=== PATIENT | male | born 1945 | race Caucasian/White ===

== ENCOUNTER 2022-04-06 11:39 | Emergency (ER) | payer MEDICARE, OTHER ==
[~2022-04-06 11:39] MED LIST: Iopamidol 370 76% 100 ML VIAL ONE; Iopamidol 370 76% 125 ML VIAL FS ONE; Sodium Chloride 0.9% 100 ML BAG ONE
[2022-04-06] MEDS ORDERED: Sodium Chloride 0.9% 1,000 ML ONE (14:11)
[2022-04-06] MEDS ORDERED: Sodium Chloride 0.9% 100 ML ONE (14:11)
[2022-04-06] MEDS ORDERED: cefTRIAXone\\ROCEPHIN 2 GM VIAL ONE (14:11)
[2022-04-06 14:24] LABS: Prothrombin Time 12.7 sec (12.0-14.7)
[2022-04-06 14:25] LABS: PTT 26.7 sec (22.9-36.1)
[2022-04-06 14:27] LABS: D-Dimer Test 1.98 *mcg/mL (0.27-0.43)
[2022-04-06 14:36] LABS: CK (CPK) 35 U/L (30-200); CRP (Inflammatory) 20.25 mg/dL (= or < 0.5); Magnesium 1.9 mg/dL (1.6-2.6)
[2022-04-06 14:39] LABS: ALT (SGPT) 15 U/L (8-55); AST (SGOT) 35 U/L (5-34); Albumin 3.3 g/dL (3.4-4.8); Alkaline Phosphatase 60 U/L (40-110); Anion Gap 20 mmol/L (10-20); BUN (Urea Nitrogen) 12 mg/dL (8.4-25.7); Bilirubin, Total 0.4 mg/dL (0.2-1.2); Calc. Creatinine Clearance 0 mL/min (70-130); Calcium 9.9 mg/dL (7.8-10.44); Carbon Dioxide 22 mmol/L (23-31); Chloride 99 mmol/L (98-107); Globulin 3.3 g/dL (2.4-3.5); Glucose 109 mg/dL (83-110); Lipase 15 U/L (8-78); Potassium 3.8 mmol/L (3.5-5.1); Protein, Total 6.6 g/dL (5.8-8.1); Sodium 137 mmol/L (136-145)
[2022-04-06 14:42] LABS: Band 6 % (5-11); Hemoglobin 11.9 g/dL (14.0-18.0); Hypochromia SLIGHT = 6-15 cells (100X) (0-5/hpf); Lymphocytes 27 % (21-51); MDiff Complete? YES; Mean Corpuscular HGB CONC 33.1 g/dL (32.0-36.0); Mean Corpuscular Hemoglobin 33.8 pg (27.0-31.0); Mean Platelet Volume 13.2 fL (7.4-10.4); Monocytes 8 % (0-10); Neutrophil 59 % (42-75); Platelet Count 146 thou/uL (130-400); Platelet Morphology Comment Appears Adequate; RBC Distribution Width 11.1 % (11.5-14.5); Red Blood Cell (RBC) Count 3.52 mill/uL (4.70-6.10); White Blood Cell (WBC) Count 7.5 thou/uL (4.8-10.8)
[2022-04-06] MEDS ORDERED: Azithromycin 250 MG TAB ONE (14:48)
[2022-04-06 17:22] LABS: Bilirubin Negative (Negative); Blood, Urine Negative (Negative); Clarity Clear (Clear); Glucose, Urine (Dipstick) Negative (Negative); Ketone, Urine Negative (Negative); Leukocyte Negative (Negative); Nitrite Negative (Negative); Protein, Urine (Dipstick) Negative (Neg-Trace); Urobilinogen 0.2 mg/dL (Less than 2); pH, Urine 5.5 (5.0-9.0)
[2022-04-06 17:25] LABS: Specific Gravity, Urine 1.005 (1.002-1.036)
== END 2022-04-06 17:05 | disposition home or self-care (01) ==
LOC: MADERS 11:39
DX: J18.9 Pneumonia, unspecified organism (principal); B96.89 Other specified bacterial agents as the cause of diseases classified elsewhere; M89.9 Disorder of bone, unspecified; M10.9 Gout, unspecified; E78.5 Hyperlipidemia, unspecified; E78.00 Pure hypercholesterolemia, unspecified; Z87.891 Personal history of nicotine dependence
CPT/HCPCS: 70450; 71045; 71275; 74177; 80053; 81003; 82550; 83605; 83690; 83735; 83880; 84443; 84484; 85025; 85379; 85610; 85730; 86140; 87040; 87086; 93005; 96360; J0696; J3490; J7050; Q9967